=== PATIENT | male | born 1955 | race Caucasian/White ===

== ENCOUNTER 2016-07-13 14:26 | Emergency (ER) | payer BC, OTHER ==
[2016-07-13 14:34] VITALS: BP 140/95; PULSE 109; RESP 20; TEMP 100.2
[2016-07-13] MEDS ORDERED: DIPH,PERTUS(ACELL)TETVAC-LF 0.5 ML VIAL IM ONE (14:40)
--- NOTE | 2016-07-13 14:42 | ED ---
Upper Extremity HPI - General Chief Complaint: Extremity Injury, Upper Stated Complaint: finger laceration-[facility] Time Seen by Provider: 07/13/16 14:37 Source: patient, RN notes reviewed Mode of arrival: ambulatory Limitations: no limitations - History of Present Illness Initial Comments: Patient is a 61-year-old male presents to the emergency room for evaluation of third and fourth finger lacerations. Patient states he was at work and accidentally got his fingers caught in the machine. Patient states he is having 5 out of 10 pain. Patient states he still has full range of motion of his fingers. Patient denies taking blood thinners. Patient denies numbness or tingling in the tip of his third and fourth digits. Patient states he still has full sensation. Patient denies any other injuries during incident. Patient states he is not up-to-date on his tetanus vaccine. - Related Data Previous Rx's Medication Instructions Recorded Cephalexin [Keflex] 500 mg PO Q6HR 7 Days 07/13/16 Allergies Allergy/AdvReac Type Severity Reaction Status Date / Time No Known Allergies Allergy Verified 07/13/16 15:00 Review of Systems ROS Statement: Those systems with pertinent positive or pertinent negative responses have been documented in the HPI. ROS Other: All systems not noted in ROS Statement are negative. Past Medical History Past Medical History: No Reported History History of Any Multi-Drug Resistant Organisms: None Reported Past Surgical History: No Surgical Hx Reported Past Psychological History: No Psychological Hx Reported Smoking Status: Never smoker Past Alcohol Use History: None Reported Past Drug Use History: None Reported General Exam - General Exam Comments Initial Comments: Sitting in exam room, in no acute distress. Limitations: no limitations General appearance: alert Head exam: Present: atraumatic, normocephalic, normal inspection Eye exam: Present: normal appearance ENT exam: Present: normal exam Neck exam: Present: normal inspection Respiratory exam: Absent: respiratory distress Right Hand Wrist exam: Present: full ROM, tenderness (Tenderness on palpating over the distal phalanx of the third and fourth digits.), laceration (3cm semi- circumferential laceration on the distal palmar phalanx of the fourth digit. 2cm irregular laceration on the distal palmar phalanx of the third digit.). Absent: normal inspection, nail avulsion Neuro motor exam: Present: wrist extension intact, thumb opposition intact, thumb IP flexion intact, thumb adduction intact, fingers 2-5 abduction intact Vascular: Present: normal capillary refill (Capillary refill less than 2 seconds ), radial pulse (2+), ulnar pulse (2+) Back exam: Present: normal inspection Neurological exam: Present: alert, oriented X3, CN II-XII intact, normal gait Psychiatric exam: Present: normal affect, normal mood Skin exam: Present: warm, dry. Absent: rash Course Vital Signs 07/13/16 14:31 Temperature 100.2 F H Pulse Rate 109 H Respiratory 20 Rate Blood Pressure 140/95 O2 Sat by Pulse 95 Oximetry Procedures - Laceration Laceration #1 Consent Obtained: verbal consent Indication: laceration Site: other (right third digit) Size (cm): 2 Description: irregular Depth: simple, single layer Anesthetic Used: lidocaine 1% Anesthesia Technique: local infiltration Amount (mls): 2 Pre-repair: wound explored, irrigated extensively Type of Sutures: nylon Size of Sutures: 5-0 Number of Sutures: 7 Technique: simple, interrupted Patient Tolerated Procedure: well, no complications Laceration #2 Consent Obtained: verbal consent Indication: laceration Site: other (right fourth digit) Size (cm): 3 Description: irregular Depth: simple, single layer Anesthetic Used: lidocaine 1% Anesthesia Technique: local infiltration Amount (mls): 2 Pre-repair: wound explored, irrigated extensively Type of Sutures: nylon Size of Sutures: 5-0 Number of Sutures: 10 Technique: simple, interrupted Patient Tolerated Procedure: well, no complications - Orthopedic Splinting/Casting Injury #1 Side: right Upper Extremity Injury Location: finger (third) Upper Extremity Immobilizer: aluminum form splint Injury #2 Side: right Upper Extremity Injury Location: finger (fourth) Upper Extremity Immobilizer: aluminum form splint Medical Decision Making - Medical Decision Making Patient is a 61-year-old male presents to the emergency room for evaluation of distal fourth and third finger lacerations. Right hand x-ray: Comminuted subungual tuft fractures involving the third and fourth digits. Patient was updated on his tetanus vaccine. Patient was given 1 g of Ancef. Patient will be sent home with Keflex. Wound was irrigated with 1 L of sterile water. Lacerations repaired sutures. Third and fourth digits placed in finger splints. Patient advised to follow-up with orthopedic hand specialist in 24-48 hours for reevaluation. Patient states he understands everything that was discussed with him. Return parameters discussed. Case discussed with Dr. Farley. - Radiology Data Radiology results: report reviewed, image reviewed Disposition Clinical Impression: Finger laceration, Open fracture of finger of right hand Disposition: HOME SELF-CARE Condition: Good Instructions: Care For Your Stitches (ED), Laceration (ED), Finger Fracture (ED ) Additional Instructions: Do not soak suture area's in water. Keep suture area's clean and dry. Please follow-up with orthopedic hand specialist for reevaluation in 24-48 hours. Take antibiotics as directed. Take Tylenol or Motrin as needed for pain. Please return in 10-12 days for suture removal. If any new symptom arises or symptoms worsen, return to ER as soon as possible. Prescriptions: Cephalexin [Keflex] 500 mg PO Q6HR 7 Days Referrals: Rodo Ingram DO [Doctor of Osteopathic Medicine] - 1-2 days Time of Disposition: 16:14
[2016-07-13] MEDS ORDERED: ceFAZolin 1,000 MG VIAL IM STA (15:10)
--- NOTE | 2016-07-13 15:14 | XR ---
EXAMINATION TYPE: XR hand complete RT DATE OF EXAM: 07/13/2016 3:09 PM CLINICAL HISTORY: pain TECHNIQUE: Frontal, lateral and oblique images of the right hand are obtained. COMPARISON: None. FINDINGS: Comminuted subungual tuft fractures involving right third digits 3 and 4. Soft tissue injur y noted. No additional fractures identified. IMPRESSION: Comminuted subungual tuft fractures
== END 2016-07-13 16:41 | disposition home or self-care (01) ==
LOC: EC 14:26
DX: S62.632B Displaced fracture of distal phalanx of right middle finger, initial encounter for open fracture (principal); S62.634B Displaced fracture of distal phalanx of right ring finger, initial encounter for open fracture; S61.212A Laceration without foreign body of right middle finger without damage to nail, initial encounter; S61.214A Laceration without foreign body of right ring finger without damage to nail, initial encounter; Z23 Encounter for immunization; W31.9XXA Contact with unspecified machinery, initial encounter; Y92.69 Other specified industrial and construction area as the place of occurrence of the external cause; Y99.0 Civilian activity done for income or pay
CPT/HCPCS: 73130; 90715; 99283; 12002; 96372; 90471; J0690

== ENCOUNTER → 2016-08-24 | Outpatient (CLI) | payer BC ==
[2016-08-24 15:41] LABS: Bilirubin, Delta 0.2 mg/dL (0.0-0.2); Total Bilirubin 0.6 mg/dL (0.2-1.3); Total Protein 7.5 g/dL (6.3-8.2)
== END ==
LOC: LABWHC1 15:16
DX: R74.8 Abnormal levels of other serum enzymes (principal)
CPT/HCPCS: 36415; 80076; 82105

== ENCOUNTER 2017-01-30 18:50 | Emergency (ER) | payer BC ==
--- NOTE | 2017-01-30 19:20 | ED ---
General Adult HPI - General Chief complaint: Wound/Laceration Stated complaint: Head Laceration Time Seen by Provider: 01/30/17 19:00 Source: patient, RN notes reviewed Mode of arrival: ambulatory Limitations: no limitations - History of Present Illness Initial comments: 61-year-old male presents to the emergency Department chief complaint of facial lacerations. Patient was walking outside and he tripped on some pallets fell forward and cut his face. Patient states that he fell multiple times because it was very difficult to get up. Patient states she's having pain to the front of his face where his cuts are. He denies any headache any loss of consciousness any nausea or vomiting with this. He states that he did drink alcohol tonight. He states that there has been no neck pain or other discomfort from the fall. Patient states it was a trip and fall with no lightheadedness or dizziness prior. Patient's tetanus is up-to-date.Patient denies any recent fever, chills, shortness of breath, chest pain, back pain, abdominal pain, nausea vomiting, numbness or tingling, dysuria or hematuria, constipation or diarrhea, headaches or visual changes, or any other current symptoms. - Related Data Home Medications Medication Instructions Recorded Confirmed Fexofenadine HCl [Amanda Allergy] 180 mg PO DAILY 01/30/17 01/30/17 Fluticasone Nasal [place] [Flonase 2 spr EA NOSTRIL DAILY 01/30/17 01/30/17 Nasal [place]] Ibuprofen [Motrin] 200 mg PO BID PRN 01/30/17 01/30/17 Moexipril/Hydrochlorothiazide 1 tab PO DAILY 01/30/17 01/30/17 [Uniretic 7.5-12.5 mg Tab] Cache-3 Fatty Acids/Fish Oil [Fish 1 cap PO HS 01/30/17 01/30/17 Oil 1,000 mg Softgel] Turmeric Root Extract [Turmeric] 500 mg PO HS 01/30/17 01/30/17 Ubidecarenone [Co Q-10] 100 mg PO HS 01/30/17 01/30/17 Vitamin A 8,000 unit PO HS 01/30/17 01/30/17 Vitamin B Complex 1 cap PO HS 01/30/17 01/30/17 Previous Rx's Medication Instructions Recorded Amoxicillin/Potassium Clav 1 tab PO Q12HR #20 tab 01/30/17 [Augmentin 875-125 Tablet] Allergies Allergy/AdvReac Type Severity Reaction Status Date / Time No Known Allergies Allergy Verified 01/30/17 19:59 Review of Systems ROS Statement: Those systems with pertinent positive or pertinent negative responses have been documented in the HPI. ROS Other: All systems not noted in ROS Statement are negative. Past Medical History Past Medical History: No Reported History History of Any Multi-Drug Resistant Organisms: None Reported Past Surgical History: No Surgical Hx Reported Past Psychological History: No Psychological Hx Reported Smoking Status: Never smoker Past Alcohol Use History: None Reported Past Drug Use History: None Reported General Exam Limitations: no limitations General appearance: alert, in no apparent distress Head exam: Present: other (laceration right eyebrow is one of the right upper lip hematoma) Eye exam: Present: normal appearance, PERRL, EOMI. Absent: scleral icterus, conjunctival injection, periorbital swelling ENT exam: Present: normal exam, mucous membranes moist Neck exam: Present: normal inspection. Absent: tenderness, meningismus, lymphadenopathy Respiratory exam: Present: normal lung sounds bilaterally. Absent: respiratory distress, wheezes, rales, rhonchi, stridor Cardiovascular Exam: Present: regular rate, normal rhythm, normal heart sounds. Absent: systolic murmur, diastolic murmur, rubs, gallop, clicks GI/Abdominal exam: Present: soft, normal bowel sounds. Absent: distended, tenderness, guarding, rebound, rigid Extremities exam: Present: normal inspection, full ROM, normal capillary refill. Absent: tenderness, pedal edema, joint swelling, calf tenderness Back exam: Present: normal inspection Neurological exam: Present: alert, oriented X3, CN II-XII intact, reflexes normal. Absent: motor sensory deficit Psychiatric exam: Present: normal affect, normal mood Skin exam: Present: warm, dry, intact, normal color. Absent: rash Course Vital Signs 01/30/17 18:52 Temperature 98.3 F Pulse Rate 79 Respiratory 20 Rate Blood Pressure 129/69 O2 Sat by Pulse 96 Oximetry Procedures - Procedures Initial comment: The skin was anesthetized with 1% lidocaine. The laceration was then cleansed with Betadine and irrigated with normal saline. The wound was inspected, and there was no evidence of injury to deep structures. No foreign body was noted in the wound. A total of 10 skin sutures were placed utilizing 6-0 nylon to a 7 cm laceration to the right eyebrow The skin was anesthetized with 1% lidocaine. The laceration was then cleansed with Betadine and irrigated with normal saline. The wound was inspected, and there was no evidence of injury to deep structures. No foreign body was noted in the wound. A total of 3 skin sutures were placed utilizing 2 cm laceration to the right upper lip with 6-0 nylon Medical Decision Making - Medical Decision Making 61-year-old male presents emergency Department chief complaint of fall and facial lacerations. At this time patient went suture repair. We discussed CAT scan results and follow-up with ophthalmology as well as ENT. Patient stated that he understood any significant plan. He'll be discharged. - Radiology Data Radiology results: report reviewed, image reviewed Disposition Clinical Impression: Orbital fracture, Laceration of right eyebrow, Lip laceration Disposition: HOME SELF-CARE Condition: Stable Instructions: Facial Fracture (ED), Facial Laceration (ED) Additional Instructions: Please use medication as discussed. Please follow up with family doctor if symptoms have not improved over the next two days. Please return to the emergency room if your symptoms increase or worsen or for any other concerns. Prescriptions: Amoxicillin/Potassium Clav [Augmentin 875-125 Tablet] 1 tab PO Q12HR #20 tab Referrals: Iraida Kessler MD [Primary Care Provider] - 1-2 days Jordan Lopez MD [STAFF PHYSICIAN] - 1-2 days Romel Aldridge DO [Doctor of Osteopathic Medicine] - 1-2 days Time of Disposition: 21:09
--- NOTE | 2017-01-30 20:42 | CT ---
EXAMINATION TYPE: CT brain jemma [place] DATE OF EXAM: 01/30/2017 COMPARISON: NONE HISTORY: Patient complains of right side superior orbital laceration post fall today. Patient denies head and neck complaints at time of service. CT DLP: 1293.1 mGycm. Automated Exposure Control for Dose Reduction was Utilized. TECHNIQUE: CT scan of the head and cervical spine are performed without contrast. FINDINGS: There is no acute intracranial hemorrhage, mass effect, or midline shift identified. The ventricles and sulci are within normal limits in size. Prominent left sylvian fissure versus choroid al fissure cyst is seen on the left. Mild right supraorbital soft tissue swelling is seen with lacera tion. No hematoma. Orbits are symmetric and lenses are in place. No retrobulbar intraconal or extraco nal fat stranding is seen. Calvarium is intact. Moderate right and mild left mucosal thickening with moderate ethmoid mucosal thickening are seen. Frontal sinuses and mastoid air cells are well aerated. Lower cervical spine is limited by patient motion. Multilevel mild degenerative disc disease is seen with Schmorl's nodes, endplate sclerosis and intervertebral disc space narrowing. Cervical spine is v isualized in its entirety from C1 through upper thoracic levels and demonstrates satisfactory alignme nt without evidence of acute fracture or dislocation. Prevertebral soft tissue appears within normal limits. The C1-C2 articulation is unremarkable. IMPRESSION: 1. There is no acute fracture or dislocation evident in the cervical spine. 2. No acute intracranial hemorrhage, mass effect, or midline shift is seen. 3. Moderate paranasal sinus disease. 4. Right supraorbital laceration and soft tissue swelling without hematoma or orbital injury on CT.
--- NOTE | 2017-01-30 20:47 | CT ---
EXAMINATION TYPE: CT facial bones wo con DATE OF EXAM: 01/30/2017 HISTORY: Patient complains of right side superior orbital laceration post fall today. CT DLP: 391.8 mGycm. Automated Exposure Control for Dose Reduction was Utilized. TECHNIQUE: CT scan of the head is performed without contrast. COMPARISON: None. FINDINGS: There is a right inferior orbital wall fracture with prolapse of orbital fat into the maxi llary sinus and displacement of the fracture fragment approximately 1.0 cm inferiorly. There is no cu rrent entrapment of the inferior rectus muscle. There is some extent into the lamina Propecia posteri bony. There is resultant high density hemorrhage and mucosal thickening of the right maxillary sinus seen on series 7 image 30. Small amount of mucosal thickening is also seen dependently within the lef t maxillary sinus and moderately within the maxillary sinuses. Mild right supraorbital soft tissue sw elling is seen with laceration. No hematoma. Globes are symmetric and lenses are in place. No retrobu lbar intraconal or extraconal fat stranding is seen. Frontal sinuses and mastoid air cells are well a erated. Maxillary spine and nasal bone appear intact. There is slight rightward nasal bone deviation, likely chronic. No significant nasal septal deviation. IMPRESSION: 1. Acute right inferior orbital wall fracture with prolapse of intraorbital fat into the maxillary si nus and extent of the fracture into the lamina Propecia. No current entrapment of the inferior rectus muscle. Resultant moderate hemorrhage into the right maxillary and ethmoid sinuses are seen. 2. Mild right preseptal periorbital edema and laceration without hematoma or post septal fat strandin g. No evidence of globe rupture or lens displacement. 3. Mild left maxillary mucosal thickening.
[2017-01-30 21:26] VITALS: BP 140/84; PULSE 90; RESP 18; TEMP 98
== END 2017-01-30 21:24 | disposition home or self-care (01) ==
LOC: EC 18:50
DX: S02.80XA Fracture of other specified skull and facial bones, unspecified side, initial encounter for closed fracture (principal); S01.511A Laceration without foreign body of lip, initial encounter; S01.111A Laceration without foreign body of right eyelid and periocular area, initial encounter; Z79.51 Long term (current) use of inhaled steroids; Z79.899 Other long term (current) drug therapy; W18.09XA Striking against other object with subsequent fall, initial encounter; Y93.01 Activity, walking, marching and hiking; Y92.89 Other specified places as the place of occurrence of the external cause
CPT/HCPCS: 12015; 70450; 70486; 72125; 99283

== ENCOUNTER → 2017-03-01 | Outpatient (CLI) | payer BC ==
--- NOTE | 2017-03-01 07:39 | US ---
EXAMINATION TYPE: US liver DATE OF EXAM: 03/01/2017 COMPARISON: 02/14/2016 CLINICAL HISTORY: 61-year-old male K76.0 NON ALCOHOLIC FATTY LIVER. Abnormal labs TECHNIQUE: Multiple sonographic images of the right upper quadrant are obtained. FINDINGS: Liver Length: 17.7 cm Gallbladder Wall: 0.2 cm CBD: 0.2 cm Right Kidney: 12.0 x 5.8 x 5.2 cm Pancreas: Visualized portions within normal limits; tail obscured by overlying bowel gas Liver: Borderline enlarged and mildly heterogeneous and attenuating. No focal lesion seen. Gallbladder: wnl Evidence for sonographic Martinez's sign: No CBD: wnl Right Kidney: No hydronephrosis IMPRESSION: 1. Borderline hepatomegaly. The heterogeneous and attenuating appearance suggests underlying hepatic steatosis. 2. No evidence for cholelithiasis or biliary ductal dilatation.
[2017-03-01 08:00] LABS: Bilirubin, Delta 0.4 mg/dL (0.0-0.2); Total Bilirubin 0.5 mg/dL (0.2-1.3)
== END | disposition home or self-care (01) ==
LOC: RADUSWWP 06:47
DX: R16.0 Hepatomegaly, not elsewhere classified (principal); K76.0 Fatty (change of) liver, not elsewhere classified
CPT/HCPCS: 36415; 76705; 80076

== ENCOUNTER 2017-03-04 11:04 | Day surgery (SDC) | payer BC ==
[2017-03-02 10:13] VITALS: BMI 27.8
[~2017-03-04 11:04] MED LIST: DEXAMETHASONE SOD PHOSPHATE 4 MG/ML 1 ML VIAL IV ONE; LACTATED RINGERS 1,000 ML IV SCH; MIDAZOLAM 2 MG/2 ML VIAL IV PRN; ONDANSETRON 4 MG/2 ML VIAL IVP ONE; OXYMETAZOLINE 0.05% NASL SPRAY 1 SPRAY BOTTLE NASAL ONE; ceFAZolin IN SWFI 2 GM/20 ML SYRINGE IVP ONE; metroNIDAZOLE-NS PMX 500 MG in SALINE 1 100ML.BAG IVPB ONE
[2017-03-04] MEDS: DEXAMETHASONE SOD PHOSPHATE 10 MG/ML 1 ML VIAL IV ONE ×2 (13:18→15:48)
[2017-03-04] MEDS ORDERED: LIDOCAINE 1% 20 ML VIAL (10MG/ML) FOR IV START INTRADERMA ONE (13:21)
[2017-03-04] MEDS ORDERED: PROPOFOL 10 MG/ML 20 ML VIAL IV ONE (14:14)
[2017-03-04] MEDS ORDERED: MIDAZOLAM 2 MG/2 ML VIAL ONE (14:14)
[2017-03-04] MEDS ORDERED: SUCCINYLCHOLINE CHLORIDE VIAL 200 MG/10 ML VIAL IV ONE (14:14)
[2017-03-04] MEDS ORDERED: PHENYLEPHRINE-0.9% NACL SYG 1 MG/10 ML SYRINGE ONE (14:14)
[2017-03-04] MEDS ORDERED: LIDOCAINE 1% INJ 10MG/ML (20 ML MDV) ONE (14:14)
[2017-03-04] MEDS ORDERED: fentaNYL (PF) 50 MCG/ML 2 ML AMP ONE (14:14)
[2017-03-04] MEDS ORDERED: LIDOCAINE-EPINEPHRINE (PF) 5 ML AMPUL SUBMUCOSAL ONE ×2 (14:20)
[2017-03-04] MEDS ORDERED: ceFAZolin IN SWFI 2 GM/20 ML SYRINGE IVP ONE (14:20)
[2017-03-04 15:21] VITALS: TEMP 97
[2017-03-04] MEDS: HYDROmorphone 0.5 MG/0.5 ML SYRINGE IVP PRN ×4 (15:25→15:45)
--- NOTE | 2017-03-04 15:28 | P.OP ---
Date of Procedure: 03/04/17 Preoperative Diagnosis: Right orbital floor fracture, posterior, inferior Postoperative Diagnosis: same Procedure(s) Performed: Oliveira Weston approach for right inferior floor fracture repair Anesthesia: FARTUNA Surgeon: Romel Aldridge Estimated Blood Loss (ml): 20 Pathology: other (sinonasal) Condition: stable Disposition: PACU Indications for Procedure: this patient presented to the office with a right orbital trauma. CAT scan evaluation demonstrates a relatively large posterior orbital floor fracture. Initially he denied any facial numbness but does admit today that he has numbness to the left nose left lip and left lower cheek. The orbital floor fractures very posterior and it appears to be blocking the ostomy complexes on the left side. Decompression and repair of this fracture as needed for normal ventilation of the sinus. Ophthalmology did clear the eye. All risks, benefits , and alternative therapies regarding this procedure were discussed. Consent was obtained and all questions were answered. Operative Findings: large posterior orbital fracture along the floor is noted on the right side. Description of Procedure: this patient was taken to the operative room and placed in the supine position. A general inhalation anesthetic was administered to the patient by mask and subsequently intubated with a cuffed endotracheal tube by the department of anesthesia with a functioning IV line in place. Patient was monitored throughout the entire case by the department of anesthesia. The face was sterilely prepped and draped in usual fashion. We then anesthetize the gingival labial sulcus overlying the canine fossa. An incision was made along the gingival labial sulcus with dissection to the canine fossa. With the antral punch we entered the maxillary sinus on the right anteriorly and with use of Kerrison widened and that opening. We then inserted an endoscope and visualized the fracture along the floor. We then took elevators and elevated mucosa off the fracture and place the fracture segments into position. We repaired the floor with harvesting some nasal septal cartilage. The floor was repaired without incident. We then opened the maxillary sinus both supraturbinal he and infraturbinal he. We then packed the right maxillary sinus with use of nasal pore causing a correction of this fracture. This gave great support to the fracture site. An excellent position was noted. We closed the incision with a 4 rapid Vicryl in running locking fashion. We did take down the uncinate process on the right side help decompress at sinus and we did open up the maxillary sinus underneath the right inferior turbinate. Excellent results were obtained. The patient tolerated this well. The patient will be discharged with instructions not to blow his nose. He is to rest with his head elevated and will be kept on antibiotics
[2017-03-04] MEDS ORDERED: LACTATED RINGERS 1,000 ML IV ONE (15:44)
[2017-03-04] MEDS ORDERED: KETOROLAC 30 MG/ML 1 ML VIAL IVP ONE (15:51)
[2017-03-04 17:02] VITALS: RESP 18
[2017-03-04 17:21] VITALS: BP 136/80; PULSE 68
== END 2017-03-04 17:39 | disposition home or self-care (01) ==
LOC: OR 11:04
PROVIDERS: ATTEND Otolaryngology
DX: S02.31XA Fracture of orbital floor, right side, initial encounter for closed fracture (principal); W01.198A Fall on same level from slipping, tripping and stumbling with subsequent striking against other object, initial encounter; Y93.01 Activity, walking, marching and hiking; Y92.71 Barn as the place of occurrence of the external cause; I10 Essential (primary) hypertension; Z87.891 Personal history of nicotine dependence; Z79.2 Long term (current) use of antibiotics; Z79.899 Other long term (current) drug therapy; Z91.013 Allergy to seafood; Z91.09 Other allergy status, other than to drugs and biological substances
CPT/HCPCS: 21385; J2250; J0330; J1100; J0690; J2405; J2001; J3010; J1885; J2370; J2704; J1170; 88305; 88311

== ENCOUNTER → 2020-03-06 | Outpatient (CLI) | payer BC, MEDICARE ==
--- NOTE | 2020-03-06 15:21 | XR ---
EXAMINATION TYPE: XR ribs bilateral DATE OF EXAM: 03/06/2020 CLINICAL HISTORY: Pain, Fall Four views of the ribs fail demonstrate evidence for displaced rib fracture or secondary sign of rib fracture. Visualized lungs are clear. No evidence for pneumothorax. IMPRESSION: 1. No displaced rib fractures seen. ICD 10 NO FRACTURE, INITIAL EVALUATION
== END | disposition home or self-care (01) ==
LOC: RADXRMAIN 13:40
PROVIDERS: ATTEND Internal Medicine
DX: R07.81 Pleurodynia (principal)
CPT/HCPCS: 71110

== ENCOUNTER 2020-11-09 16:36 | Emergency (ER) | payer MEDICARE, BC ==
[2020-11-09 16:41] VITALS: RESP 18; TEMP 98.4
[2020-11-09] MEDS ORDERED: ALBUTEROL HFA INHALER INHALATION STA (17:44)
--- NOTE | 2020-11-09 18:21 | XR ---
EXAMINATION TYPE: XR chest 2V DATE OF EXAM: 11/09/2020 COMPARISON: NONE HISTORY: Cough. TECHNIQUE: FINDINGS: There are bilateral patchy areas of airspace infiltrate in the lower lung weber. There is old right-sided healed rib fractures. There are no hilar masses. Heart size is normal. There is no pl eural effusion. Mediastinum is normal. Bony thorax appears intact. IMPRESSION: Bilateral patchy pneumonia. Normal heart.
--- NOTE | 2020-11-09 19:13 | ED ---
General Adult HPI - General Chief complaint: Upper Respiratory Infection Stated complaint: Cough Time Seen by Provider: 11/09/20 16:49 Source: patient, family Mode of arrival: wheelchair Limitations: no limitations - History of Present Illness Initial comments: 65-year-old male presents to the emergency room for a chief complaint of cough. Patient states he has had a cough for about 10 days. Patient states at times he has felt short of breath but has not felt short of breath the past few days. He denies any chest pain. He admits to having low-grade fevers at the beginning but has not had any since. Patient did call his doctor 3 days ago who started him on a Z-Ayan and steroids.Patient has no other complaints at this time including shortness of breath, chest pain, abdominal pain, nausea or vomiting, headache, or visual changes. - Related Data Home Medications Medication Instructions Recorded Confirmed Fexofenadine HCl [Amanda Allergy] 180 mg PO DAILY 01/30/17 03/04/17 Fluticasone Nasal [place] [Flonase 2 spr EA NOSTRIL DAILY 01/30/17 03/04/17 Nasal [place]] Ibuprofen [Motrin] 200 mg PO BID PRN 01/30/17 03/02/17 Moexipril/Hydrochlorothiazide 1 tab PO DAILY 01/30/17 03/04/17 [Uniretic 7.5-12.5 mg Tab] [place]-3 Fatty Acids/Fish Oil [Fish 1 cap PO HS 01/30/17 03/02/17 Oil 1,000 mg Softgel] Turmeric Root Extract [Turmeric] 500 mg PO HS 01/30/17 03/02/17 Ubidecarenone [Co Q-10] 100 mg PO HS 01/30/17 03/02/17 Vitamin A [Vitamin A (8,000 Units 8,000 unit PO HS 01/30/17 03/02/17 = 2,400 MCG)] Vitamin B Complex 1 cap PO HS 01/30/17 03/02/17 Previous Rx's Medication Instructions Recorded Amoxicillin/Potassium Clav 1 tab PO Q12HR #20 tab 01/30/17 [Augmentin 875-125 Tablet] Amoxicillin/Potassium Clav 1 each PO Q12HR #28 tab 03/04/17 [Augmentin 875-125 Tablet] Ibuprofen [Motrin] 600 mg PO Q6HR PRN #60 tab 03/04/17 Levofloxacin [Levaquin] 500 mg PO DAILY #10 tab 03/04/17 predniSONE [Deltasone] 20 mg PO DIRECTED #5 tab 03/04/17 Albuterol Inhaler [Ventolin Hfa 2 puff INHALATION RT-QID PRN #1 11/09/20 Inhaler] inhaler Benzonatate [Tessalon Perles] 200 mg PO Q8H PRN #15 capsule 11/09/20 Allergies Allergy/AdvReac Type Severity Reaction Status Date / Time No Known Allergies Allergy Verified 11/09/20 16:39 Review of Systems ROS Statement: Those systems with pertinent positive or pertinent negative responses have been documented in the HPI. ROS Other: All systems not noted in ROS Statement are negative. Past Medical History Past Medical History: No Reported History History of Any Multi-Drug Resistant Organisms: None Reported Past Surgical History: No Surgical Hx Reported Past Psychological History: No Psychological Hx Reported Smoking Status: Never smoker Past Alcohol Use History: Occasional Past Drug Use History: None Reported General Exam Limitations: no limitations General appearance: alert, in no apparent distress Head exam: Present: atraumatic Eye exam: Present: normal appearance, PERRL, EOMI. Absent: scleral icterus, conjunctival injection ENT exam: Present: normal exam, mucous membranes moist Neck exam: Present: normal inspection, full ROM. Absent: tenderness Respiratory exam: Present: normal lung sounds bilaterally. Absent: respiratory distress, wheezes Cardiovascular Exam: Present: regular rate, normal rhythm, normal heart sounds GI/Abdominal exam: Present: soft. Absent: distended, tenderness, normal bowel sounds Neurological exam: Present: alert Course Vital Signs 11/09/20 16:39 Temperature 98.4 F Pulse Rate 85 Respiratory 18 Rate Blood Pressure 108/69 O2 Sat by Pulse 96 Oximetry Medical Decision Making - Medical Decision Making Vitals are stable. Patient is 96% on room air. No respiratory distress. Brooks virus is positive. Chest x-ray does reveal bilateral patchy pneumonia. Given symptoms started within 10 days he was offered antibody infusion. I discussed the risks versus benefits and he did accept this. I also offer this to his for post exposure prophylaxis which she declines at this time. Patient is stable for discharge home but I did discuss strict return parameters. He will otherwise follow-up with his doctor. - Lab Data Lab Results 08/28/21 Range/Units 17:49 Coronavirus (PCR) Detected A (Not Detectd) Disposition Clinical Impression: COVID Disposition: HOME SELF-CARE Condition: Good Instructions (If sedation given, give patient instructions): Coronavirus Disease 2019 (COVID-19) Additional Instructions: Finish your antibiotic and steroid. Take Tessalon Perles for cough in addition to [id number] medicine. Use inhaler as needed. Follow-up with your doctor. If youre having worsening symptoms or your oxygen saturation is staying below 90% return to the emergency room. Prescriptions: Benzonatate [Tessalon Perles] 200 mg PO Q8H PRN #15 capsule PRN Reason: Cough Albuterol Inhaler [Ventolin Hfa Inhaler] 2 puff INHALATION RT-QID PRN #1 inhaler PRN Reason: Shortness Of Breath Is patient prescribed a controlled substance at d/c from ED?: No Referrals: Iraida Kessler MD [Primary Care Provider] - 1-2 days Time of Disposition: 19:11
[2020-11-09] MEDS ORDERED: CASIRIVIMAB (REGN10933) (EUA) 600 MG, IMDEVIMAB (REGN10987) (EUA) 600 MG in SODIUM CHLO... IVPB ONE (19:45)
[2020-11-09] MEDS ORDERED: SODIUM CHLORIDE 0.9% 50 ML IVPB ONE (20:00)
[2020-11-09 21:38] VITALS: BP 110/72; PULSE 78
== END 2020-11-09 21:39 | disposition home or self-care (01) ==
LOC: EC 16:36
DX: U07.1 COVID-19 (principal)
CPT/HCPCS: 71046; 87635; 94640; 96365; 99283

== ENCOUNTER 2020-11-13 12:31 | Emergency (ER) | payer MEDICARE, BC ==
[2020-11-13 12:55] VITALS: TEMP 98.1
--- NOTE | 2020-11-13 13:57 | XR ---
EXAMINATION TYPE: XR chest 1V portable DATE OF EXAM: 11/13/2020 HISTORY: Shortness of breath. COMPARISON: 11/09/2020 TECHNIQUE: Single view of the chest is submitted. FINDINGS: Demonstrated are scattered senescent parenchymal change. Focal areas of infiltrate left upper lobe, left lower lobe and right midlung zone persist and have pr ogressed in the interval. Findings are suspicious for Covid 19 pneumonia. The heart is stable. Hilar and mediastinal structures are within normal limits. Degenerative changes are seen of the dorsal spine. IMPRESSION: 1. Focal areas of infiltrate left upper lobe, left lower lobe and right midlung zone persist and hav e progressed in the interval. Findings are suspicious for Covid 19 pneumonia.
--- NOTE | 2020-11-13 14:18 | ED ---
General Adult HPI - General Chief complaint: Upper Respiratory Infection Stated complaint: revisit- Covid+, SOB Time Seen by Provider: 11/13/20 13:33 Source: patient Mode of arrival: ambulatory Limitations: no limitations - History of Present Illness Initial comments: Dictation was produced using [employer] dictation software. please excuse any grammatical, word or spelling errors. Chief Complaint: 65-year-old male presents with worsening coronavirus symptoms History of Present Illness: 65-year-old male who states that this morning he woke up with worsening chills, fatigue and sweats. Patient was diagnosed with coronavirus on November 09. Patient states she's been symptomatic for 7 days. Patient states that he talked to his who suggested that patient come to the emergency department to be evaluated. Patient has completed steroid therapy. He got monoclonal antibodies on Wednesday. Has been taking Tylenol for his fevers. The ROS documented in this emergency department record has been reviewed and confirmed by me. Those systems with pertinent positive or negative responses have been documented in the HPI. All other systems are other negative and/or noncontributory. PHYSICAL EXAM: General Impression: Alert and oriented x3, not in acute distress HEENT: Normocephalic atraumatic, extra-ocular movements intact, pupils equal and reactive to light bilaterally, mucous membranes moist. Cardiovascular: Heart regular rate and rhythm Chest: Able to complete full sentences, no retractions, no tachypnea Abdomen: abdomen soft, non-tender, non-distended, no organomegaly Musculoskeletal: Pulses present and equal in all extremities, no peripheral edema Motor: no focal deficits noted Neurological: CN II-XII grossly intact, no focal motor or sensory deficits noted Skin: Intact with no visualized rashes Psych: Normal affect and mood ED course: 65-year-old male presents to the emergency department for worsening coronavirus symptoms. Vital signs upon arrival shows findings within acceptable limits. Patient not hypoxic. Chest x-ray shows focal areas of infiltrate in left upper lobe, left lower lobe and right midlung zone check progress in the interval compared to chest x-ray from November 09. Patient vital signs upon arrival shows 94% on room air, heart rate of 104, ambulatory pulse ox was perfo rmed with oxygen levels measured 95-96% on room air. Patient evaluated at bedside 5 in stable medical condition. Patient not showing any significant respiratory distress. He completed monoclonal bodies and received a course of steroid therapy. Patient is not hypoxic. He has a pulse oximeter at home. He is told to closely monitor his symptoms at home and take check his oxygen frequently on a daily basis. Patient is agreeable discharge. He understands when he should seek medical attention. - Related Data Home Medications Medication Instructions Recorded Confirmed Fexofenadine HCl [Amanda Allergy] 180 mg PO DAILY 01/30/17 03/04/17 Fluticasone Nasal [place] [Flonase 2 spr EA NOSTRIL DAILY 01/30/17 03/04/17 Nasal [place]] Ibuprofen [Motrin] 200 mg PO BID PRN 01/30/17 03/02/17 Moexipril/Hydrochlorothiazide 1 tab PO DAILY 01/30/17 03/04/17 [Uniretic 7.5-12.5 mg Tab] [place]-3 Fatty Acids/Fish Oil [Fish 1 cap PO HS 01/30/17 03/02/17 Oil 1,000 mg Softgel] Turmeric Root Extract [Turmeric] 500 mg PO HS 01/30/17 03/02/17 Ubidecarenone [Co Q-10] 100 mg PO HS 01/30/17 03/02/17 Vitamin A [Vitamin A (8,000 Units 8,000 unit PO HS 01/30/17 03/02/17 = 2,400 MCG)] Vitamin B Complex 1 cap PO HS 01/30/17 03/02/17 Previous Rx's Medication Instructions Recorded Amoxicillin/Potassium Clav 1 tab PO Q12HR #20 tab 01/30/17 [Augmentin 875-125 Tablet] Amoxicillin/Potassium Clav 1 each PO Q12HR #28 tab 03/04/17 [Augmentin 875-125 Tablet] Ibuprofen [Motrin] 600 mg PO Q6HR PRN #60 tab 03/04/17 Levofloxacin [Levaquin] 500 mg PO DAILY #10 tab 03/04/17 predniSONE [Deltasone] 20 mg PO DIRECTED #5 tab 03/04/17 Albuterol Inhaler [Ventolin Hfa 2 puff INHALATION RT-QID PRN #1 11/09/20 Inhaler] inhaler Benzonatate [Tessalon Perles] 200 mg PO Q8H PRN #15 capsule 11/09/20 Allergies Allergy/AdvReac Type Severity Reaction Status Date / Time shellfish derived [Shellfish] Allergy Unknown Verified 11/13/20 12:51 Review of Systems ROS Statement: Those systems with pertinent positive or pertinent negative responses have been documented in the HPI. ROS Other: All systems not noted in ROS Statement are negative. Past Medical History Past Medical History: Hypertension History of Any Multi-Drug Resistant Organisms: None Reported Past Surgical History: No Surgical Hx Reported Past Psychological History: No Psychological Hx Reported Smoking Status: Former smoker Past Alcohol Use History: Occasional Past Drug Use History: None Reported General Exam Limitations: no limitations Course Vital Signs 11/13/20 11/13/20 12:51 13:57 Temperature 98.1 F Pulse Rate 104 H Respiratory 20 Rate Blood Pressure 159/95 O2 Sat by Pulse 94 L 95 Oximetry Disposition Clinical Impression: Coronavirus infection Disposition: HOME SELF-CARE Condition: Fair Instructions (If sedation given, give patient instructions): Coronavirus Disease 2019 (COVID-19) Additional Instructions: Today you were evaluated for symptoms consistent with upper respiratory infection. Today you were evaluted for Covid 19. Your are stable for discharge, however it is instructed to to seek immediate medical attention especially if you develop worsening symptoms especially respiratory distress. Use your pulse oximeter and monitor your oxygen at home. Seek medical attention if he have any worsening symptoms including hypoxia less than 90% at rest or with exertion. In the meantime please remain in quarantine for 14 days. For any other questions please contact Adrienne for here in emergency department or [facility] at [phone] Is patient prescribed a controlled substance at d/c from ED?: No Referrals: Iraida Kessler MD [Primary Care Provider] - 1-2 days
[2020-11-13 15:11] VITALS: BP 127/96; PULSE 89; RESP 20
== END 2020-11-13 15:05 | disposition home or self-care (01) ==
LOC: EC 12:31
DX: U07.1 COVID-19 (principal); I10 Essential (primary) hypertension; Z87.891 Personal history of nicotine dependence
CPT/HCPCS: 71045; 99283

== ENCOUNTER → 2021-12-17 | Outpatient (CLI) | payer MEDICARE, BC ==
--- NOTE | 2021-12-18 07:23 | XR ---
EXAMINATION TYPE: XR ankle complete RT DATE OF EXAM: 12/17/2021 COMPARISON: NONE HISTORY: [id number] RT ANKLE PAIN TECHNIQUE: Frontal, lateral and oblique images of the right ankle are obtained. COMPARISON: None. FINDINGS: There is no acute fracture/dislocation evident. The joint spaces appear within normal limi ts. Soft tissue swelling over the lateral malleolus. No radiopaque foreign body. No subcutaneous gas. No osseous erosions. IMPRESSION: 1. There is no acute fracture or dislocation seen. 2. Soft tissue swelling over the lateral malleolus.
== END | disposition home or self-care (01) ==
LOC: RADXRYALE 16:51
PROVIDERS: ATTEND Internal Medicine
DX: M79.89 Other specified soft tissue disorders (principal)

== ENCOUNTER 2021-12-18 12:44 | Emergency (ER) | payer MEDICARE, BC ==
[2021-12-18 13:36] VITALS: BP 107/70; PULSE 86; RESP 16; TEMP 97.6
[2021-12-18 16:17] LABS: Albumin 4.7 g/dL (3.5-5.0); Calcium 9.2 mg/dL (8.4-10.2); Potassium 3.8 mmol/L (3.5-5.1); Total Protein 7.8 g/dL (6.3-8.2)
--- NOTE | 2021-12-18 18:23 | ED ---
Skin/Abscess/FB HPI - General Source: patient, family, RN notes reviewed Mode of arrival: ambulatory Limitations: no limitations <Allison Oakley - Last Filed: 12/18/21 18:49> <Loraine Steiner - Last Filed: 12/18/21 21:27> - General Chief complaint: Skin/Abscess/Foreign Body Stated complaint: Celulitis R foot Time Seen by Provider: 12/18/21 17:43 - History of Present Illness Initial comments: Patient is a 66-year-old male presents to the emergency room with complaints of increased pain and swelling to his right lower extremity. He was seen by his primary care provider yesterday and was diagnosed with cellulitis at that time he had an x-ray done to evaluate for osteomyelitis which was negative. He was started on Keflex and has taken approximately 24 hours worse with the oral medication without side effects. He admits to past medical history significant for daily drinking and he states that approximately 6 days ago he quit drinking. He denies any known history of renal insufficiency or DVT. He also has a past medical history is of hypertension. (Allison Oakley) - Related Data Home Medications Medication Instructions Recorded Confirmed Fexofenadine HCl [Amanda Allergy] 180 mg PO DAILY 01/30/17 03/04/17 Fluticasone Nasal [place] [Flonase 2 spr EA NOSTRIL DAILY 01/30/17 03/04/17 Nasal [place]] Ibuprofen [Motrin] 200 mg PO BID PRN 01/30/17 03/02/17 Moexipril/Hydrochlorothiazide 1 tab PO DAILY 01/30/17 03/04/17 [Uniretic 7.5-12.5 mg Tab] [place]-3 Fatty Acids/Fish Oil [Fish 1 cap PO HS 01/30/17 03/02/17 Oil 1,000 mg Softgel] Turmeric Root Extract [Turmeric] 500 mg PO HS 01/30/17 03/02/17 Ubidecarenone [Co Q-10] 100 mg PO HS 01/30/17 03/02/17 Vitamin A [Vitamin A (8,000 Units 8,000 unit PO HS 01/30/17 03/02/17 = 2,400 MCG)] Vitamin B Complex 1 cap PO HS 01/30/17 03/02/17 Previous Rx's Medication Instructions Recorded Amoxicillin/Potassium Clav 1 tab PO Q12HR #20 tab 01/30/17 [Augmentin 875-125 Tablet] Amoxicillin/Potassium Clav 1 each PO Q12HR #28 tab 03/04/17 [Augmentin 875-125 Tablet] Ibuprofen [Motrin] 600 mg PO Q6HR PRN #60 tab 03/04/17 Levofloxacin [Levaquin] 500 mg PO DAILY #10 tab 03/04/17 predniSONE [Deltasone] 20 mg PO DIRECTED #5 tab 03/04/17 Albuterol Inhaler [Ventolin Hfa 2 puff INHALATION RT-QID PRN #1 11/09/20 Inhaler] inhaler Benzonatate [Tessalon Perles] 200 mg PO Q8H PRN #15 capsule 11/09/20 Allergies Allergy/AdvReac Type Severity Reaction Status Date / Time shellfish derived [Shellfish] Allergy Unknown Verified 12/18/21 13:36 Review of Systems ROS Other: All systems not noted in ROS Statement are negative. <Allison Oakley - Last Filed: 12/18/21 18:49> ROS Other: All systems not noted in ROS Statement are negative. <Loraine Steiner - Last Filed: 12/18/21 21:27> ROS Statement: Those systems with pertinent positive or pertinent negative responses have been documented in the HPI. Past Medical History Past Medical History: Hypertension History of Any Multi-Drug Resistant Organisms: None Reported Past Surgical History: Hernia Repair Past Psychological History: No Psychological Hx Reported Smoking Status: Former smoker Past Alcohol Use History: Daily Past Drug Use History: None Reported <Allison Oakley - Last Filed: 12/18/21 18:49> General Exam Limitations: no limitations General appearance: alert, in no apparent distress Head exam: Present: atraumatic, normocephalic, normal inspection Eye exam: Present: normal appearance, PERRL, EOMI. Absent: scleral icterus, conjunctival injection, periorbital swelling ENT exam: Present: normal exam, mucous membranes moist Neck exam: Present: normal inspection, full ROM Respiratory exam: Absent: respiratory distress, accessory muscle use GI/Abdominal exam: Present: soft, other (round) Rectal exam: Present: deferred Right Lower Leg exam: Present: tenderness, swelling, erythema. Absent: Homans' sign Ankle exam: Present: tenderness, swelling, erythema Foot/Toe exam: Present: tenderness, swelling, erythema Gait: observed and limited by pain Back exam: Present: normal inspection Neurological exam: Present: alert, oriented X3, CN II-XII intact Psychiatric exam: Present: normal affect, normal mood Skin exam: Present: other (Lateral aspect erythema more pronounced than erythremia to right lower extremity. Healing abrasion with scab intact lateral ankle) <Allison Oakley - Last Filed: 12/18/21 18:49> Course Vital Signs 12/18/21 13:32 Temperature 97.6 F Pulse Rate 86 Respiratory 16 Rate Blood Pressure 107/70 O2 Sat by Pulse 100 Oximetry Medical Decision Making - Lab Data Result diagrams: 12/18/21 15:45 <Allison Oakley - Last Filed: 12/18/21 18:49> - Lab Data Result diagrams: 12/18/21 19:12 12/18/21 15:45 <Loraine Steiner - Last Filed: 12/18/21 21:27> - Medical Decision Making 66-year-old male presenting to the emergency room with complaints of right lower extremity swelling pain redness and warmth started on treatment for cellulitis by his primary care provider yesterday. X-ray completed by his primary care provider negative for osteomyelitis. Blood cultures pending. Awaiting CBC results. CMP drawn while in the waiting room showing mild electrolyte derangement and slight dehydration on most likely chronic kidney disease stage III. Pain stable at this time will avoid analgesics. Will check ultrasound for DVT. Further plan pending results of ultrasound and CBC. Will likely continue outpatient oral antibiotic therapy in the setting of lack of fever, systemic symptoms, or tachycardia. (Allison Oakley) CBC shows minimal leukocytosis at 12.5. Ultrasound with Doppler is negative for DVT. Patient monitored closely in the ED. He is afebrile and medically stable for discharge. He will be given a dose of IM rocephin prior to going home. He will continue his home prescription of Keflex and follow-up with primary care provider for monitoring of infection. Return parameters discussed. Dr. Kilpatrick is my attending. (Loraine Steiner) - Lab Data Lab Results 12/18/21 12/18/21 12/18/21 Range/Units 15:45 15:45 19:12 WBC 12.5 H (3.8-10.6) k/uL RBC 5.05 (4.30-5.90) m/uL Hgb 16.6 (13.0-17.5) gm/dL Hct 48.0 (39.0-53.0) % MCV 95.1 (80.0-100.0) fL MCH 33.0 (25.0-35.0) pg MCHC 34.7 (31.0-37.0) g/dL RDW 12.7 (11.5-15.5) % Plt Count 155 (150-450) k/uL MPV 9.5 Neutrophils % 82 % Lymphocytes % 8 % Monocytes % 5 % Eosinophils % 1 % Basophils % 0 % Neutrophils # 10.2 H (1.3-7.7) k/uL Lymphocytes # 1.0 (1.0-4.8) k/uL Monocytes # 0.6 (0-1.0) k/uL Eosinophils # 0.1 (0-0.7) k/uL Basophils # 0.0 (0-0.2) k/uL Sodium 135 L (137-145) mmol/L Potassium 3.8 (3.5-5.1) mmol/L Chloride 95 L (98-107) mmol/L Carbon Dioxide 23 (22-30) mmol/L Anion Gap 17 mmol/L BUN 30 H (9-20) mg/dL Creatinine 1.72 H (0.66-1.25) mg/dL Est GFR (CKD-EPI)AfAm 47 (>60 ml/min/1.73 sqM) Est GFR (CKD-EPI)NonAf 41 (>60 ml/min/1.73 sqM) Glucose 116 H (74-99) mg/dL Plasma Lactic Acid [place] 1.4 (0.7-2.0) mmol/L Calcium 9.2 (8.4-10.2) mg/dL Total Bilirubin 1.0 (0.2-1.3) mg/dL AST 36 (17-59) U/L ALT 66 H (4-49) U/L Alkaline Phosphatase 94 (38-126) U/L Total Protein 7.8 (6.3-8.2) g/dL Albumin 4.7 (3.5-5.0) g/dL Disposition <Allison Oakley - Last Filed: 12/18/21 18:49> Is patient prescribed a controlled substance at d/c from ED?: No Time of Disposition: : <Loraine Steiner - Last Filed: 12/18/21 21:27> Clinical Impression: Cellulitis of right lower extremity, Right leg pain Disposition: HOME SELF-CARE Condition: Good Instructions (If sedation given, give patient instructions): Cellulitis (ED) Additional Instructions: Continue home prescription of Keflex as directed. Schedule appointment with primary care provider for early next week for monitoring of infection. Return to the emergency department if you experience new, concerning, or worsening symptoms. Referrals: Iraida Kessler MD [Primary Care Provider] - 1-2 days
--- NOTE | 2021-12-18 18:51 | US ---
EXAMINATION TYPE: US venous doppler duplex LE RT DATE OF EXAM: 12/18/2021 6:39 PM COMPARISON: NONE CLINICAL HISTORY: swelling pain redness. redness x 2 days, swelling x 1 day in rt leg. No hx of DVT SIDE PERFORMED: Right TECHNIQUE: The lower extremity deep venous system is examined utilizing real time linear array sonog rasheed with graded compression, doppler sonography and color-flow sonography. VESSELS IMAGED: Common Femoral Vein Deep Femoral Vein Greater Saphenous Vein * Femoral Vein Popliteal Vein Small Saphenous Vein * Proximal Calf Veins (* superficial vessels) Right Leg: Negative for DVT. Enlarged lymph node visualized in the right groin measuring 3.0 x 1.8 x 1.4 cm IMPRESSION: No evidence of deep vein thrombosis in the right leg. There is a dominant inguinal lymph node.
[2021-12-18 19:49] LABS: Basophils % (A) 0 %; Eosinophils # (A) 0.1 k/uL (0-0.7); Eosinophils % (A) 1 %; HGB 16.6 gm/dL (13.0-17.5); Lymphocytes % (A) 8 %; MCHC 34.7 g/dL (31.0-37.0); MCV 95.1 fL (80.0-100.0); Mean Platelet Volume 9.5; Monocytes # (A) 0.6 k/uL (0-1.0); Monocytes % (A) 5 %; Neutrophils # (A) 10.2 k/uL (1.3-7.7); Neutrophils % (A) 82 %; Platelet Count 155 k/uL (150-450); RBC 5.05 m/uL (4.30-5.90); RDW 12.7 % (11.5-15.5); WBC 12.5 k/uL (3.8-10.6)
[2021-12-18] MEDS ORDERED: cefTRIAXone 1,000 MG VIAL (IM USE) IM STA (21:12)
== END 2021-12-18 22:23 | disposition home or self-care (01) ==
LOC: EC 12:44
DX: L03.115 Cellulitis of right lower limb (principal); I10 Essential (primary) hypertension; Z87.891 Personal history of nicotine dependence; Z79.899 Other long term (current) drug therapy; Z91.013 Allergy to seafood
CPT/HCPCS: 36415; 80053; 83605; 85025; 87040; 93971; 99284; 96372; J0696